=== PATIENT | male | born 2000 | race African-American/Black ===

== ENCOUNTER 2023-05-23 12:48 | Emergency (ER) | payer OTHER ==
[~2023-05-23] VITALS: Ht 182.9 cm; Wt 90.7 kg
[2023-05-23 12:54] VITALS: BP 124/75; TEMP 98.4
== END 2023-05-23 14:11 | disposition home or self-care (01) ==
LOC: ED 12:48
PROC: 0HQFXZZ Repair Right Hand Skin, External Approach (ICD-10-PCS; principal; 2023-05-23)
DX: S61.210A Laceration without foreign body of right index finger without damage to nail, initial encounter (principal); W26.0XXA Contact with knife, initial encounter
CPT/HCPCS: 90471; 90715; 99283